=== PATIENT | female | born 1955 | race Caucasian/White ===

== ENCOUNTER 2017-03-15 12:40 | Emergency (ER) | payer MEDICARE, MEDICAID ==
[~2017-03-15] VITALS: Ht 160 cm; Wt 97.5 kg
[2017-03-15] MEDS ORDERED: VITAMIN D34000 UNIT PO (12:56)
[2017-03-15] MEDS ORDERED: ADDERALL XR 1010 MG PO (12:56)
== END 2017-03-15 14:06 | disposition home or self-care (01) ==
LOC: ED 12:40
DX: S00.93XA Contusion of unspecified part of head, initial encounter (principal); S00.81XA Abrasion of other part of head, initial encounter; S00.31XA Abrasion of nose, initial encounter; W18.30XA Fall on same level, unspecified, initial encounter; Z79.899 Other long term (current) drug therapy
CPT/HCPCS: 70450; 99284

== ENCOUNTER → 2018-01-31 | Emergency (ER) | payer MEDICARE, MEDICAID ==
[~2018-01-31] VITALS: Ht 160 cm; Wt 97.5 kg
[~2018-01-31] MED LIST: ADDERALL XR 1010 MG PO; ALLERGY25 MG PO; CLONIDINE HCL0.1 MG PO; K-TAB ER20 MEQ PO; LISINOPRIL10 MG PO; METOPROLOL SUC100 MG PO; PRAVASTATIN SOD10 MG PO; TRIAMTERENE-HC1 EAC3 PO; VITAMIN D34000 UNIT PO
--- OUTSIDE RECORDS SUMMARY | ~2018-01-31 | XMS | Clinical Summary ---
Demographics + + + | Address | [address] | | | [place] [address] | + + + | Home Phone | | + + + | Preferred Language | Unknown | + + + | Marital Status | Single | + + + | Mu-Ism Affiliation | NRP | + + + [...] Team Providers + +------+ + | Care Statistical Clerk Advertising Name | Role | Phone | + +------+ + | No Pcp Per Patient | PP | Unavailable | + +------+ + Source Comments FREDDY is fully live on both [facility] Ambulatory and [facility] InPatient.[facility] Allergies No Known Allergies Current Medications + [...] | + + + + + | INFLUENZA VACCINE | | | | | (FLU SHOT) | 8 | | | + + [...] | MEDICA | xxxxxxxxxx | Medica | [phone] | [address] | | | RE A & | | re | [phone] | [place] [address] | | | B | | | [...] Self | [birth year] | Home: | [address] | | | al/Fam | | 1956 | [phone] | [place] | | | [place] | | | [phone] | [phone] | + +--------+ +--------+ + +
--- OUTSIDE RECORDS SUMMARY | ~2018-01-31 | XMS | Clinical Summary ---
Demographics + + + | Address | [address] | | | [place] [address] | + + + | Home Phone | | + + + | Preferred Language | Unknown | + + + | Marital Status | Single | + + + | Caodaism Affiliation | NRP | + + + [...] Team Providers + +------+ + | Care Director Audience Marketing Name | Role | Phone | + +------+ + | No Pcp Per Patient | PP | Unavailable | + +------+ + Source Comments FREDDY is fully live on both [facility] Ambulatory and [facility] InPatient.[facility] Allergies No Known Allergies Current Medications + [...] | Medica | [phone] | [address] | | | RE A & | | re | [phone] | [place] [address] | | | B | | | [...] Self | [birth year] | Home: | [address] | | | al/Fam | | 1956 | [phone] | [place] | | | [place] | | | [phone] | [phone] | + +--------+ +--------+ + +
== END ==
LOC: ED 01:54
DX: N13.2 Hydronephrosis with renal and ureteral calculous obstruction (principal); I10 Essential (primary) hypertension; Z88.8 Allergy status to other drugs, medicaments and biological substances; Z79.899 Other long term (current) drug therapy
CPT/HCPCS: 74177; 80053; 81001; 83690; 85025; 96361; 96374; 96375; 99285; J1170; J1885; J2405; J7030; Q9967

== ENCOUNTER 2018-07-10 18:01 | Emergency (ER) | payer MEDICARE, MEDICAID ==
[~2018-07-10] VITALS: Ht 160 cm; Wt 95.7 kg
--- OUTSIDE RECORDS SUMMARY | ~2018-07-10 | XMS | Clinical Summary ---
Demographics + + + | Address | [address] | | | [place] [address] | + + + | Home Phone | | + + + | Preferred Language | Unknown | + + + | Marital Status | Single | + + + | Amish Affiliation | NRP | + + + | Race | White | + + + | Ethnic Group | Not or | + + + Author + + + | Author | [facility] | + + + | Organization | [facility] | + + + | Address | Unknown | + + + | Phone | Unavailable | + + + Support + + +---------+ + | Name | Relationship | Address | Phone | + + +---------+ + | Lisha Alcantara | ECON | Unknown | | + + +---------+ + Care Team Providers + +------+ + | Care Cartography Professor Name | Role | Phone | + +------+ + | No Pcp Per Patient | PP | Unavailable | + +------+ + Source Comments FREDDY is fully live on both [facility] Ambulatory and [facility] InPatient.[facility] Allergies No Known Allergies Current Medications + + + +---------+------+------+-------+ | Prescription | Sig. | Disp. | Refills | Star | End | Statu | | | | | | t | Date | s | | | | | | Date | | | + + + +---------+------+------+-------+ | TRIAMTERENE ORAL | Take by mouth. | | | | | Activ | | | | | | | | e | + + + +---------+------+------+-------+ | CYCLOBENZAPRINE | Take by mouth. | | | | | Activ | | HCL (FLEXERIL ORAL) | | | | | | e | + + + +---------+------+------+-------+ | METOPROLOL | Take by mouth. | | | | | Activ | | SUCCINATE ORAL | | | | | | e | + + + +---------+------+------+-------+ | AMPHET | Take by mouth. | | | | | Activ | | ASP/AMPHET/D-AMPHET | | | | | | e | | (ADDERALL ORAL) | | | | | | | + + + +---------+------+------+-------+ | ibuprofen 600 mg | Take 1 Tab by mouth | 30 Tab | 2 | 06/2 | | Activ | | Oral Tablet | every six hours as | | | 5/20 | | e | | | needed. Take with | | | 12 | | | | | food and a full | | | | | | | | glass of water. | | | | | | + + + +---------+------+------+-------+ Active Problems +---------+ + | Problem | Noted Date | +---------+ + | Obesity | 12/17/2014 | +---------+ + Social History + +-------+ +--------+------+ | Tobacco Use | Types | Packs/Day | Years | Date | | | | | Used | | + +-------+ +--------+------+ | Never Smoker | | | | | + +-------+ +--------+------+ + + +---------+ + | Alcohol Use | Drinks/We | oz/Week | Comments | | | ek | | | + + +---------+ + | No | | | | + + +---------+ + + + + | Sex Assigned at | Date Recorded | | | | + + + | Not on file | | + + + Last Filed Vital Signs + + + + | Vital Sign | Reading | Time Taken | + + + + | Blood Pressure | 112/68 | 10/22/2011 9:19 PM PDT | + + + + | Pulse | 92 | 10/22/2011 4:00 PM PDT | + + + + | Temperature | 37.6 C (99.6 F) | 10/22/2011 4:00 PM PDT | + + + + | Respiratory Rate | 16 | 10/22/2011 9:19 PM PDT | + + + + | Oxygen Saturation | 94% | 10/22/2011 9:19 PM PDT | + + + + | Inhaled Oxygen | - | - | | Concentration | | | + + + + | Weight | 106.3 kg (234 lb 6.4 | 01/20/2015 2:58 PM PDT | | | oz) | | + + + + | Height | 167.6 cm (5' 6") | 01/20/2015 2:58 PM PDT | + + + + | Body Mass Index | 37.83 | 01/20/2015 2:58 PM PDT | + + + + Plan of Treatment + + + + + | Health Maintenance | Due Date | Last Done | Comments | + + + + + | Influenza (Flu) | | | | | vaccination (#1) | 8 | | | + + + + + Results Not on filefrom Last 3 Months Insurance + +--------+ +--------+ + + | Payer | Benefi | Subscriber | Type | Phone | Address | | | t Plan | ID | | | | | | / | | | | | | | Group | | | | | + +--------+ +--------+ + + | MEDICARE | MEDICA | xxxxxxxxxx | Medica | [phone] | [address] | | | RE A & | | re | [phone] | [place] [address] | | | B | | | | | + +--------+ +--------+ + + + +--------+ +--------+ + + | Guarantor Name | Accoun | Relation to | Date | Phone | Billing Address | | | t Type | Patient | of | | | | | | | | | | + +--------+ +--------+ + + | EDIE HENDRIX | Person | Self [birth year] | Home: | [address] | | | al/Fam | | 1956 | [phone] | [place] | | | [place] | | | [phone] | [phone] | + +--------+ +--------+ + +
--- OUTSIDE RECORDS SUMMARY | ~2018-07-10 | XMS | Clinical Summary ---
Demographics + + + | Address | [address] | | | [place] [address] | + + + | Home Phone | | + + + | Preferred Language | Unknown | + + + | Marital Status | Single | + + + | Sikhism Affiliation | [phone] | + + + | Race | Unknown | + + + | Ethnic Group | Unknown | + + + Author + + + | Author | [facility] | | | and [place] | + + + | Organization | [facility] | | | and [place] | + + + | Address | Unknown | + + + | Phone | Unavailable | + + + Support + + +---------+ + | Name | Relationship | Address | Phone | + + +---------+ + | Alexei Odonnell | ECON | Unknown | | + + +---------+ + | StanleyLisha bejarano | ECON | Unknown | | + + +---------+ + Care Team Providers + +------+ + | Care Lace Inspector Name | Role | Phone | + +------+ + | No, Physician | PP | Unavailable | + +------+ + Allergies + + + + + + | Active Allergy | Reactions | Severity | Noted | Comments | | | | | Date | | + + + + + + | Reading Oil | | | //20 | | | | | | 18 | | + + + + + + | Gabapentin | | | 10//20 | "I lose my | | | | | 18 | equilibrium" | + + + + + + | Milk Protein | Diarrhea | | 20 | Sensitive to | | | | | 18 | casein | + + + + + + | Mushroom | Hives | | 10/05/20 | | | | | | 18 | | + + + + + + | Jasper | | | 10//20 | | | | | | 18 | | + + + + + + Current Medications + + +---------+---------+------+------+-------+ | Prescription | Sig. | Disp. | Refills | Star | End | Statu | | | | | | t | Date | s | | | | | | Date | | | + + +---------+---------+------+------+-------+ | diphenhydrAMINE | Take 25 mg by mouth | | | | | Activ | | (BENADRYL) 25 mg | every 6 hours as | | | | | e | | tablet | needed for Itching. | | | | | | + + +---------+---------+------+------+-------+ | Multiple | Take 1 tablet by | | | | | Activ | | Vitamins-Minerals | mouth Daily. | | | | | e | | (CENTRUM WOMEN PO) | | | | | | | + + +---------+---------+------+------+-------+ | simethicone | Take 125 mg by mouth | | | | | Activ | | (MYLICON) 125 MG | every 6 hours as | | | | | e | | chewable tablet | needed for | | | | | | | | Flatulence. | | | | | | + + +---------+---------+------+------+-------+ | | Take 10 mg by mouth | | | | | Activ | | amphetamine-dextroam | every morning. | | | | | e | | phetamine (ADDERALL | | | | | | | | XR) 10 mg 24 hr | | | | | | | | capsule | | | | | | | + + +---------+---------+------+------+-------+ | Cholecalciferol | Take 1 capsule by | | | | | Activ | | 4000 units TABS | mouth Daily. | | | | | e | + + +---------+---------+------+------+-------+ | | Take 1 tablet by | | | | | Activ | | triamterene-hydrochl | mouth Daily. | | | | | e | | orothiazide | | | | | | | | (MAXZIDE-25) 37.5-25 | | | | | | | | mg per tablet | | | | | | | + + +---------+---------+------+------+-------+ | metoprolol | Take 100 mg by mouth | | | | | Activ | | succinate | Daily. | | | | | e | | (TOPROL-XL) 100 mg | | | | | | | | ER tablet | | | | | | | + + +---------+---------+------+------+-------+ | lisinopril | Take 10 mg by mouth | | | | | Activ | | (PRINIVIL, ZESTRIL) | Daily. | | | | | e | | 10 mg tablet | | | | | | | + + +---------+---------+------+------+-------+ | pravastatin | Take 10 mg by mouth | | | | | Activ | | (PRAVACHOL) 10 mg | nightly. | | | | | e | | tablet | | | | | | | + + +---------+---------+------+------+-------+ | potassium chloride | Take 20 mEq by mouth | | | | | Activ | | 20 mEq CR tablet | Daily. | | | | | e | + + +---------+---------+------+------+-------+ | cloNIDine | Take 0.1 mg by mouth | | | | | Activ | | (CATAPRES) 0.1 mg | nightly. | | | | | e | | tablet | | | | | | | + + +---------+---------+------+------+-------+ | | Take 1 tablet by | 20 | 0 | 10/0 | | Activ | | HYDROcodone-acetamin | mouth every 4 hours | tablet | | 6/20 | | e | | ophen (NORCO) 5-325 | as needed for Pain. | | | 18 | | | | mg per tablet | | | | | | | + + +---------+---------+------+------+-------+ | | Take 1 tablet by | 30 | 0 | 10/0 | | Activ | | triamterene-hydrochl | mouth Daily. | tablet | | 6/20 | | e | | orothiazide | | | | 18 | | | | (MAXZIDE-25) 37.5-25 | | | | | | | | mg per tablet | | | | | | | + + +---------+---------+------+------+-------+ | metoprolol | Take 2 tablets by | 60 | 0 | 10/0 | | Activ | | succinate | mouth Daily. | tablet | | /20 | | e | | (TOPROL-XL) 50 mg 24 | | | | 18 | | | | hr tablet | | | | | | | + + +---------+---------+------+------+-------+ | polyethylene | Take 17 g by mouth | 119 g | 0 | 10/0 | | Activ | | glycol (MIRALAX) | Daily as needed for | | | 20 | | e | | powder | Constipation. | | | 18 | | | + + +---------+---------+------+------+-------+ Active Problems + + + | Problem | Noted Date | + + + | Family history of malignant hyperthermia | 01/31/2018 | + + + + + | Overview: Sister with biopsy proven MH. Patient is fairly | | certain she had an emergency [place] for C/S prior to her sister's | | diagnosis. | + + + + + | Obesity, morbid, BMI 40.0-49.9 ([facility]) | 01/31/2018 | + + + Family History + + +------+ + | Medical History | Relation | Name | Comments | + + +------+ + | Malig hypertherm | Sister | | | + + +------+ + + +------+--------+ + | Relation | Name | Status | Comments | + +------+--------+ + | Sister | | | | + +------+--------+ + Social History + +-------+ +--------+------+ | Tobacco Use | Types | Packs/Day | Years | Date | | | | | Used | | + +-------+ +--------+------+ | Never Assessed | | | | | + +-------+ +--------+------+ + + + | Sex Assigned at | Date Recorded | | | | + + + | Not on file | | + + + Last Filed Vital Signs + + + + | Vital Sign | Reading | Time Taken | + + + + | Blood Pressure | 190/90 | 02/01/2018712 PDT | + + + + | Pulse | 72 | 02/01/20181354 PDT | + + + + | Temperature | 37 C (98.6 F) | 02/01/2018712 PDT | + + + + | Respiratory Rate | 18 | 02/01/20181354 PDT | + + + + | Oxygen Saturation | 93% | 02/01/20181354 PDT | + + + + | Inhaled Oxygen | - | - | | Concentration | | | + + + + | Weight | 104.1 kg (229 lb 8 | 02/01/2018924 PDT | | | oz) | | + + + + | Height | 160 cm (5' 3") | 01/31/2018 161 PDT | + + + + | Body Mass Index | 40.65 | 02/01/2018924 PDT | + + + + Plan of Treatment + + + + + | Health Maintenance | Due Date | Last Done | Comments | + + + + + | Hepatitis C | | | | | Screening | 7 | | | + + + + + | Vaccine: | | | | | Dtap/Tdap/Td (1 - | 6 | | | | Tdap) | | | | + + + + + | Cervical Cancer | | | | | Screening (Pap) | 7 | | | + + + + + | BREAST CANCER | | | | | SCREENING (MAMM Q2 | 7 | | | | YEARS 50-74) | | | | + + + + + | Colorectal Cancer | | | | | Screening | 7 | | | | (Colonoscopy) | | | | + + + + + | Vaccine: Zoster (1 | | | | | of 2) | 7 | | | + + + + + | Vaccine: Influenza | | | | | (#1) | 8 | | | + + + + + | Adult Annual | | | | | Wellness Visit | 8 | | | + + + + + Implants + +-------+--------+ +--------+--------+--------+ | Implanted | Type | Area | Manufacture | Device | Expira | Model | | | | | r | | tion | / | | | | | | Identi | Date | Serial | | | | | | fier | | / Lot | + +-------+--------+ +--------+--------+--------+ | Stent Uro Unvrs Sft 6fr 26cm | Stent | Right: | EMILY DIAZ | | 10/11/ | [id number] | | - Sn/AImplanted: Qty: 1 on | | | INCORPORATE | | 2020 | /N/A | | 01/31/2018 by Nate Chung, | | Ureter | D | | | /[id number] | | MD | | | | | | 65 | + +-------+--------+ +--------+--------+--------+ Results Not on filefrom Last 3 Months Insurance + +--------+ +--------+-------+---------+ | Payer | Benefi | Subscriber | Type | Phone | Address | | | t Plan | ID | | | | | | / | | | | | | | Group | | | | | + +--------+ +--------+-------+---------+ | [employer] | MODA | [id number] | Medica | | | | | HEALTH | | re | | | | | MDCR | | | | | + +--------+ +--------+-------+---------+ + +--------+ +--------+ + + | Guarantor Name | Accoun | Relation to | Date | Phone | Billing Address | | | t Type | Patient | of | | | | | | | | | | + +--------+ +--------+ + + | EDIE HENDRIX | Person | Self [birth year] | Home: | [address] | | | al/Fam | | 1956 | [phone] | [address] [place] | | | [place] | | | [phone] | + +--------+ +--------+ + +
--- OUTSIDE RECORDS SUMMARY | ~2018-07-10 | XMS | Clinical Summary ---
Demographics + + + | Address | [address] | | | [place] [address] | + + + | Home Phone | | + + + | Preferred Language | Unknown | + + + | Marital Status | Single | + + + | Jain Affiliation | NRP | + + + [...] Team Providers + +------+ + | Care Casting Carrier Name | Role | Phone | + +------+ + | No Pcp Per Patient | PP | Unavailable | + +------+ + Source Comments FREDDY is fully live on both [facility] Ambulatory and [facility] InPatient.[facility] Allergies No Known Allergies Current Medications + [...] | MEDICA | xxxxxxxxxx | Medica | [phone] | [address] | | | RE A & | | re | [address] | [place] [address] | | | B | | | [...] Self | [birth year] | Home: | [address] | | | al/Fam | | 1956 | [phone] | [place] | | | [place] | | | [phone] | [phone] | + +--------+ +--------+ + +
--- OUTSIDE RECORDS SUMMARY | ~2018-07-10 | XMS | Clinical Summary ---
Demographics + + + | Address | [address] | | | [place] [address] | + + + | Home Phone | | + + + | Preferred Language | Unknown | + + + | Marital Status | Single | + + + | Orthodoxy Affiliation | 1038 | + + + | Race | Unknown | + + + | Ethnic Group | Unknown | + + + Author + + + | Author | [facility] | | | and [place] | + + + | Organization | [facility] | | | and [...] Team Providers + +------+ + | Care Switchboard Receptionist Name | Role | Phone | + +------+ + | No, Physician | PP | Unavailable | + +------+ + Allergies + + + + + + | Active Allergy | Reactions | Severity | Noted | Comments | | | | | Date | | + + + + + + | [place] Oil | | | //20 | | [...] + + + + + + | [place] | | | 10//20 | | | [...] + + | Obesity, morbid, BMI 40.0-49.9 ([facility]) | 01/31/2018 | + + + Family [...] | EMILY DIAZ | | 10/11/ | [id number] | | - Sn/AImplanted: Qty: 1 on | | | INCORPORATE | | 2020 | /N/A | | 01/31/2018 by Nate Chung, | | Ureter | D | | | /[id number] | | MD | | | | [...] | [employer] | MODA | [id number] | Medica | | | | | [...] Self | [birth year] | Home: | [address] | | | al/Fam | | 1956 | [phone] | [address] [place] | | | [place] | | | [phone] | [phone] | + +--------+ +--------+ + +
[~2018-07-10 18:01] MED LIST changes: +CIPRO500 MG PO
[2018-07-10] MEDS ORDERED: CEPHALEXIN500 MG PO (20:46)
== END 2018-07-10 21:04 | disposition home or self-care (01) ==
LOC: ED 18:01
DX: L60.0 Ingrowing nail (principal); I10 Essential (primary) hypertension; J45.909 Unspecified asthma, uncomplicated; F90.0 Attention-deficit hyperactivity disorder, predominantly inattentive type; Z87.442 Personal history of urinary calculi; Z88.8 Allergy status to other drugs, medicaments and biological substances; Z79.899 Other long term (current) drug therapy
CPT/HCPCS: 99283